=== PATIENT | male | born 1995 | race Caucasian/White ===

== ENCOUNTER 2018-03-19 00:14 | Emergency (ER) | payer OTHER ==
[~2018-03-19] VITALS: Ht 170.2 cm; Wt 95.3 kg
[2018-03-19] MEDS ORDERED: DOXYCYCLINE HY100 MG PO (01:47)
[2018-03-19 01:59] VITALS: BP 132/76
== END 2018-03-19 01:59 | disposition home or self-care (01) ==
LOC: EME 00:14
PROC: 3E0234Z Introduction of Serum, Toxoid and Vaccine into Muscle, Percutaneous Approach (ICD-10-PCS; principal; 2018-03-19)
DX: S91.152A Open bite of left great toe without damage to nail, initial encounter (principal); W53.01XA Bitten by mouse, initial encounter; Y92.009 Unspecified place in unspecified non-institutional (private) residence as the place of occurrence of the external cause; Z23 Encounter for immunization
CPT/HCPCS: 99281; 99283